=== PATIENT | male | born 1965 | race Caucasian/White ===

== ENCOUNTER 2017-02-05 13:52 | Emergency (ER) | payer OTHER ==
[~2017-02-05 13:52] MED LIST: ASPIRIN81 M1 PO; BACTRIM 400-801 TA1 PO; BACTRIM DS PO; BACTRIM DS TABL1 TA1 PO; CIPRO PO; COREG PO; IBUPROFEN PO; LEVEMIR SUBQ; LISINOPRIL-HCTZ1 T14 PO; LISINOPRIL10 MG PO; NORVASC10 MG PO; NOVOLIN N100 U/M1; NOVOLIN N100 U/ML INJ; NOVOLIN R100 U/ML INJ; NOVOLOG100 UNITS/ SUBQ; SILVADENE TOP; [UNRECOGNIZED DRUG - OTHER]
[2017-04-30] MEDS ORDERED: METFORMIN PO (09:54)
[2017-04-30] MEDS ORDERED: FOLIC ACID1 MG PO (09:55)
[2017-04-30] MEDS ORDERED: ESCITALOPRAM OX20 MG PO (09:55)
[2017-04-30] MEDS ORDERED: LISINOPRIL10 MG PO (09:56)
[2017-04-30] MEDS ORDERED: VITAMIN D31000 UNIT PO (09:56)
[2017-04-30] MEDS ORDERED: ATORVASTATIN CA20 MG PO (09:57)
[2017-04-30] MEDS ORDERED: METOPROLOL SUCC25 MG PO (09:57)
[2017-04-30] MEDS ORDERED: MAG-OX 400400 MG PO (09:58)
[2017-04-30] MEDS ORDERED: ASPIRIN81 MG PO (09:58)
[2017-04-30] MEDS ORDERED: LEVEMIR100 UNITS/ SUBQ (10:00)
== END 2017-02-05 15:30 | disposition home or self-care (01) ==
LOC: CED 13:52
DX: E11.649 Type 2 diabetes mellitus with hypoglycemia without coma (principal); I10 Essential (primary) hypertension; F98.8 Other specified behavioral and emotional disorders with onset usually occurring in childhood and adolescence; F17.210 Nicotine dependence, cigarettes, uncomplicated
CPT/HCPCS: 82947; 96374; 99283

== ENCOUNTER → 2017-05-07 | Day surgery (SDC) | payer OTHER ==
[~2017-05-07] MED LIST changes: +ASPIRIN81 MG PO; +ATORVASTATIN CA20 MG PO; +ESCITALOPRAM OX20 MG PO; +FOLIC ACID1 MG PO; +LEVEMIR100 UNITS/ SUBQ; +MAG-OX 400400 MG PO; +METFORMIN PO; +METOPROLOL SUCC25 MG PO; +VITAMIN D31000 UNIT PO
--- NOTE | ~2017-05-07 | OR ---
Unit #: [id number] #: [id number] Patient: PAULINE LEACH [id number] [address] [address] [id number] MR#: [id number] NAME: PAULINE LEACH ROOM: Date of Procedure: 05/07/2017 Admission Date: 05/07/2017 Surgeon: eLif Dorsey M.D. : 1965 Attending Physician: Leif Dorsey M.D. Referring Physician: Leif Dorsey M.D. Primary Care Physician: Annalise Crane M.D. OPERATIVE REPORT JOB NOTE: VERIFY PATIENT NAME. PROCEDURE PERFORMED Colonoscopy with snare polypectomy, multiple. INDICATIONS A 51-year-old gentleman with average risk for colorectal cancer. MEDICATIONS Monitored anesthesia. POSTOPERATIVE FINDINGS 1. Transverse colon x1 polyp, sigmoid colon x1 polyp, rectal x1, all were small, 4 to 6 mm, snared and sent for histopathology. 2. Internal hemorrhoids. PLAN Follow up on pathology report. If adenomatous, repeat colonoscopy in 5 years. DESCRIPTION OF PROCEDURE The patient was explained of the procedure, risks, and benefits along with risks and benefits of anesthesia. He was brought to the endoscopy room. Propofol anesthesia was given. Rectal exam was done, which was normal. Colonoscope was lubricated, passed up the rectum, advanced under direct vision all the way to the cecum. Cecum was identified by ileocecal valve and appendiceal orifice. I then started to pull the scope out carefully looking. Several polyps were seen as described. I retroflexed in the rectum, small hemorrhoids seen. Scope was gently pulled out. He tolerated it well. Dictated by... Amy Joseph/maynor TD: 05/08/2017 06:04 JOB #: [id number] CC: Annalise Crane M.D. Unit #: [id number] #: [id number] Patient: PAULINE LEACH OPERATIVE REPORT Page 1 of 1 X Dorsey,Leif K MD X PROCEDURE OPERATIVE NOTE
== END | disposition home or self-care (01) ==
LOC: COPS 08:30
DX: Z12.11 Encounter for screening for malignant neoplasm of colon (principal); D12.3 Benign neoplasm of transverse colon; D12.8 Benign neoplasm of rectum; K63.5 Polyp of colon; K64.8 Other hemorrhoids; E11.9 Type 2 diabetes mellitus without complications; Z79.4 Long term (current) use of insulin; I10 Essential (primary) hypertension; F17.200 Nicotine dependence, unspecified, uncomplicated
CPT/HCPCS: 82947; 88305